=== PATIENT | female | born 1970 | race Caucasian/White ===

== ENCOUNTER 2017-03-17 19:41 | Emergency (ER) | payer BC ==
[~2017-03-17] VITALS: Ht 175.3 cm; Wt 94.0 kg
[2017-03-17 19:46] VITALS: TEMP 36.5; Ht 175.3 cm; Wt 94.0 kg
[2017-03-17 20:10] LABS: BASO % 0.3 %; BASO ABS # 0.03 K/uL (0-0.2); COMPLETE YES; EOS % 2.4 %; HEMATOCRIT 36.8 % (37-47); IG% 0.3 %; LYMPH % 27.1 %; LYMPH ABS # 2.43 K/uL (1.2-3.4); MEAN CELL VOLUME 93.4 fL (80-100); MEAN CORPUSCULAR HEMOGLOBIN 33.8 pg (25-34); MEAN CORPUSCULAR HGB CONC 36.1 g/dl (32-36); MEAN PLATELET VOLUME 10.6 fL (7.4-10.4); MONO % 4.8 %; NEUT % 65.1 %; PLATELET COUNT 258 K/uL (130-400); RED BLOOD COUNT 3.94 M/uL (4.2-5.4); WHITE BLOOD COUNT 8.98 K/uL (4.8-10.8)
[2017-03-17] MEDS ORDERED: HYDROmorphone INJ 0.5 MG/0.5 ML SYR IV STA ×2 (20:11→20:59)
[2017-03-17] MEDS ORDERED: ONDANSETRON INJ 2 MG/ML 2 ML VIAL IV STA (20:11)
[2017-03-17] MEDS ORDERED: SODIUM CHLORIDE 0.9% 1000ML 1,000 ML IV STA (20:11)
[2017-03-17 20:38] LABS: ALT/SGPT 35 U/L (12-78); AST/SGOT 12 U/L (15-37); BLOOD UREA NITROGEN 15 mg/dl (7-18); BUN/CREATININE RATIO 12.2 (10-20); CALCIUM 8.4 mg/dl (8.5-10.1); CARBON DIOXIDE 19 mmol/L (21-32); CHLORIDE 117 mmol/L (98-107); GLUCOSE 115 mg/dl (70-99); POTASSIUM 3.8 mmol/L (3.5-5.1); SODIUM 144 mmol/L (136-145)
[2017-03-17 20:40] LABS: ALKALINE PHOSPHATASE 86 U/L (45-117)
[2017-03-17 20:49] LABS: PREG INTERNAL NEGATIVE QC NEG CLEAR BACKGROUND; PREG INTERNAL POSITIVE QC POS CONTROL LINE
[2017-03-17 20:58] LABS: URINE APPEARANCE CLEAR (CLEAR); URINE BILIRUBIN NEG (NEG); URINE COLOR YELLOW; URINE NITRITE NEG (NEG); URINE PH 6.5 (4.5-7.5); UROBILINOGEN NEG (NEG); ZZUR CULT IF INDIC CLEAN CATCH NO
[2017-03-17 21:00] LABS: MANUAL MICROSCOPIC REQUIRED? NO; REVIEW REQ? NO
[2017-03-17] MEDS ORDERED: DIAZ10TA PO (21:22)
[2017-03-17] MEDS ORDERED: OLAN-111 PO (21:22)
[2017-03-17] MEDS ORDERED: TOPI100T20 PO (21:22)
--- NOTE | 2017-03-17 22:07 | DIAGNOSTIC IMAGING REPORT ---
ULTRASOUND RIGHT UPPER QUADRANT ABDOMEN CLINICAL HISTORY: Postprandial right upper quadrant abdominal pain. COMPARISON STUDY: No priors. TECHNIQUE: Real-time, grayscale, and color flow sonography of the right upper quadrant of the abdomen was performed. Images are reviewed in the transverse and longitudinal planes. FINDINGS: Liver: The liver is normal in size and heterogeneous in echotexture. There is no intrahepatic biliary ductal dilatation. The main portal vein is patent. Gallbladder: The gallbladder is normal in appearance. No gallstones are identified. There is no gallbladder wall thickening or pericholecystic fluid. A sonographic Cardenas's sign is reportedly absent. The common bile duct measures up to 0.5 cm in diameter. Pancreas: Visualized portions of the pancreatic head and body are normal in appearance. Right kidney: Survey images of the right kidney demonstrate normal size and echotexture. There is no hydronephrosis. Ascites: None. IMPRESSION: No acute sonographic abnormality is identified in the right upper quadrant. No gallstones are seen. Electronically signed by: Rocco Connors M.D. 03/17/2017 10:05 PM Dictated Date/Time: 03/17/2017 10:03 PM
[2017-03-17] MEDS ORDERED: OPTIRAY 320 IV PRN (22:45)
--- NOTE | 2017-03-17 23:07 | DIAGNOSTIC IMAGING REPORT ---
CT SCAN OF THE ABDOMEN AND PELVIS WITH IV CONTRAST CLINICAL HISTORY: Right upper quadrant abdominal pain. COMPARISON STUDY: Abdominal ultrasound dated 03/17/2017. TECHNIQUE: Following the IV administration of 93 cc of Optiray 320, CT scan of the abdomen and pelvis is performed from the lung bases to the proximal femora. Images are reviewed in the axial, sagittal, and coronal planes. IV contrast was administered without complication. Automated dose control exposure was utilized. CT DOSE: 905.30 mGy.cm FINDINGS: Lung bases: The heart is normal in size and without pericardial effusion. A peripherally calcified breast implant is partially visualized on the left. Linear atelectasis versus scarring is seen at the lung bases. No airspace consolidation is identified typical for pneumonia and no pleural effusion is seen a 5 mm left lower lobe pulmonary nodule is seen on image #35. Liver: The contrast-enhanced liver is normal in size, contour, and attenuation. There is no intrahepatic biliary ductal dilatation. The hepatic veins and portal veins are patent. A 7 mm hypodensity in the right lobe seen on image #140 may represent a tiny cyst but is too small for definitive characterization. Gallbladder: Unremarkable. Spleen: Normal in size and attenuation. Pancreas: Unremarkable. Adrenal glands: Unremarkable. Kidneys: The contrast enhanced kidneys are normal in size and without hydronephrosis. The kidneys enhance symmetrically. A retroaortic left renal vein is incidentally noted. A subcentimeter cortical hypodensity in the interpolar left kidney likely represents a cyst but is too small for definitive characterization. Abdominal vasculature: The abdominal aorta is normal in course and caliber noting mild to moderate and age advanced atherosclerotic calcification. Bowel: The small bowel and colon are normal in course and caliber. There is moderate colonic fecal retention. The appendix is well-visualized and normal. Peritoneum: There is no intraperitoneal free air or abdominal ascites. There is a small fat-containing umbilical hernia. Lymphadenopathy: None. Pelvic viscera: The bladder, uterus, and adnexa are normal as visualized. There are bilateral ovarian follicles. Trace free fluid is seen in the cul-de-sac. Skeletal structures: No lytic or blastic lesions are seen. IMPRESSION: 1. There are no acute infectious or inflammatory findings in the abdomen or pelvis. 2. There is trace and likely physiologic free fluid in the cul-de-sac. 3. A 5 mm left lower lobe pulmonary nodule is identified. This is pathologically indeterminant, and follow-up with a nonemergent chest CT scan is recommended for further interrogation. 4. Moderate constipation. 5. Additional findings as above. Electronically signed by: Rocco Connors M.D. 03/17/2017 11:05 PM Dictated Date/Time: 03/17/2017 10:59 PM
[2017-03-17] MEDS ORDERED: MAGNESIUM CITRATE 296 ML/BTL PO STA (23:54)
[2017-03-18] MEDS ORDERED: NORCO 5/325MG HOME PACK PO ONE
[2017-03-18] MEDS ORDERED: BENTYL HOME PACK 10 MG VIAL PO ONE
[2017-03-18 00:25] VITALS: BP 115/81; PULSE 79; O2SAT 95
--- NOTE | 2017-03-18 02:26 | EMERGENCY ROOM VISIT NOTE ---
History Report prepared by Jannet: Óscar Knowles Under the Supervision of: Dr. Jitendra Dia M.D. First contact with patient: 19:53 Chief Complaint: ABDOMINAL PAIN Stated Complaint: ABD PAIN History of Present Illness The patient is a 47 year old female who presents to the Emergency Room with complaints of intermittent upper abdominal pain beginning about a year ago. She states that her pain is generally present following eating. She states that her pain lasts for about 15 minutes at a time. The patient feels that her pain is likely due to her gallbladder. She states that her current episode of pain has lasted for over an hour and began after eating a tuna-fish sandwich and pop- tarts. She rates her current pain as an 8/10 in severity. She has a history of cholelithiasis, but no known history of cholecystitis. The patient states that she has had symptoms for several years, but with yearlong breaks between symptoms until this past year. She states that she vomited today with her current episode of pain. Pt denies LOC, headache, fevers, chills, diaphoresis, visual changes, neck pain, chest pain, breathing difficulties, nausea, back pain , melena, hematochezia, urinary symptoms, numbness, weakness, lymphadenopathy, rash, or other complaints. She has taken Toradol, Naproxen and Tylenol for her pain but has seen minimal relief. Source of History: patient Onset: a year ago Position: abdomen (upper) Symptom Intensity: 15 minute long episodes Timing: intermittent Associated Symptoms: + vomiting, No hematochezia, No melena Review of Systems See HPI for pertinent positives and negatives. A total of ten systems were reviewed and were otherwise negative. Past Medical & Surgical Medical Problems: (1) Bipolar disorder (2) Breast implant status (3) Cholelithiasis (4) Tonsillar abscess Surgical Problems: (1) S/P tubal ligation Family History No pertinent family history stated. Social History Smoking Status: Current Every Day Smoker Marital Status: Current/Historical Medications Scheduled Diazepam (Valium), 10 MG PO TID Topiramate (Topamax), 100 MG PO QAM Scheduled PRN Olanzapine (Zyprexa), 5-15 MG PO UNKNOWN PRN for PRN Allergies Coded Allergies: Carbamazepine (Unverified Allergy, Unknown, ANEMIA, 03/17/17) Penicillins (Unverified Allergy, Unknown, BRUISES, 03/17/17) Physical Exam Vital Signs Date Time Temp Pulse Resp B/P Pulse Ox O2 Delivery O2 Flow Rate FiO2 03/18/17 00:25 79 18 115/81 95 Room Air 03/17/17 22:15 70 16 117/70 100 03/17/17 19:46 36.5 91 16 130/88 100 Room Air Physical Exam GENERAL: Awake, alert, well-appearing, in no distress HENT: Normocephalic, atraumatic. Oropharynx unremarkable. EYES: Normal conjunctiva. Sclera non-icteric. NECK: Supple. No nuchal rigidity. FROM. No JVD. RESPIRATORY: Clear to auscultation. CARDIAC: Regular rate, normal rhythm. Extremities warm and well perfused. Pulses equal. ABDOMEN: Soft, non-distended. Right epigastric and RUQ tenderness to palpation. No rebound or guarding. No masses. RECTAL: Deferred. MUSCULOSKELETAL: Chest examination reveals no tenderness. The back is symmetrical on inspection without obvious abnormality. There is no CVA tenderness to palpation. No joint edema. LOWER EXTREMITIES: Calves are equal size bilaterally and non-tender. No edema. No discoloration. NEURO: Normal sensorium. No sensory or motor deficits noted. SKIN: No rash or jaundice noted. Medical Decision & Procedures ER Provider Diagnostic Interpretation: US/CT: Radiology results as stated below per my review and radiologist interpretation ULTRASOUND RIGHT UPPER QUADRANT ABDOMEN FINDINGS: Liver: The liver is normal in size and heterogeneous in echotexture. There is no intrahepatic biliary ductal dilatation. The main portal vein is patent. Gallbladder: The gallbladder is normal in appearance. No gallstones are identified. There is no gallbladder wall thickening or pericholecystic fluid. A sonographic Cardenas's sign is reportedly absent. The common bile duct measures up to 0.5 cm in diameter. Pancreas: Visualized portions of the pancreatic head and body are normal in appearance. Right kidney: Survey images of the right kidney demonstrate normal size and echotexture. There is no hydronephrosis. Ascites: None. IMPRESSION: No acute sonographic abnormality is identified in the right upper quadrant. No gallstones are seen. Electronically signed by: Rocco Connors M.D. CT SCAN OF THE ABDOMEN AND PELVIS WITH IV CONTRAST FINDINGS: Lung bases: The heart is normal in size and without pericardial effusion. A peripherally calcified breast implant is partially visualized on the left. Linear atelectasis versus scarring is seen at the lung bases. No airspace consolidation is identified typical for pneumonia and no pleural effusion is seen a 5 mm left lower lobe pulmonary nodule is seen on image #35. Liver: The contrast-enhanced liver is normal in size, contour, and attenuation. There is no intrahepatic biliary ductal dilatation. The hepatic veins and portal veins are patent. A 7 mm hypodensity in the right lobe seen on image #140 may represent a tiny cyst but is too small for definitive characterization. Gallbladder: Unremarkable. Spleen: Normal in size and attenuation. Pancreas: Unremarkable. Adrenal glands: Unremarkable. Kidneys: The contrast enhanced kidneys are normal in size and without hydronephrosis. The kidneys enhance symmetrically. A retroaortic left renal vein is incidentally noted. A subcentimeter cortical hypodensity in the interpolar left kidney likely represents a cyst but is too small for definitive characterization. Abdominal vasculature: The abdominal aorta is normal in course and caliber noting mild to moderate and age advanced atherosclerotic calcification. Bowel: The small bowel and colon are normal in course and caliber. There is moderate colonic fecal retention. The appendix is well-visualized and normal. Peritoneum: There is no intraperitoneal free air or abdominal ascites. There is a small fat-containing umbilical hernia. Lymphadenopathy: None. Pelvic viscera: The bladder, uterus, and adnexa are normal as visualized. There are bilateral ovarian follicles. Trace free fluid is seen in the cul-de-sac. Skeletal structures: No lytic or blastic lesions are seen. IMPRESSION: 1. There are no acute infectious or inflammatory findings in the abdomen or pelvis. 2. There is trace and likely physiologic free fluid in the cul-de-sac. 3. A 5 mm left lower lobe pulmonary nodule is identified. This is pathologically indeterminant, and follow-up with a nonemergent chest CT scan is recommended for further interrogation. 4. Moderate constipation. 5. Additional findings as above. Electronically signed by: Rocco Connors M.D. Laboratory Results 03/17/17 19:55 Red Blood Count 3.94, Mean Corpuscular Volume 93.4, Mean Corpuscular Hemoglobin 33.8, Mean Corpuscular Hemoglobin Concent 36.1, Mean Platelet Volume 10.6, Neutrophils (%) (Auto) 65.1, Lymphocytes (%) (Auto) 27.1, Monocytes (%) (Auto) 4.8, Eosinophils (%) (Auto) 2.4, Basophils (%) (Auto) 0.3, Neutrophils # (Auto) 5.84, Lymphocytes # (Auto) 2.43, Monocytes # (Auto) 0.43, Eosinophils # (Auto) 0.22, Basophils # (Auto) 0.03 03/17/17 19:55 Test 03/17/17 00:00 03/17/17 19:55 Urine Color YELLOW Urine Appearance CLEAR (CLEAR) Urine pH 6.5 (4.5-7.5) Urine Specific [place] 1.020 (1.000-1.030) Urine Protein NEG (NEG) Urine Glucose (UA) NEG (NEG) Urine Ketones NEG (NEG) Urine Occult Blood TRACE (NEG) Urine Nitrite NEG (NEG) Urine Bilirubin NEG (NEG) Urine Urobilinogen NEG (NEG) Urine Leukocyte Esterase NEG (NEG) Urine WBC (Auto) 0 /hpf (0-5) Urine RBC (Auto) 0-4 /hpf (0-4) Urine Hyaline Casts (Auto) 0 /lpf (0-5) Urine Epithelial Cells (Auto) 10-20 /lpf (0-5) Urine Bacteria (Auto) NEG (NEG) White Blood Count 8.98 K/uL (4.8-10.8) Red Blood Count 3.94 M/uL (4.2-5.4) Hemoglobin 13.3 g/dL (12.0-16.0) Hematocrit 36.8 % (37-47) Mean Corpuscular Volume 93.4 fL (80-100) Mean Corpuscular Hemoglobin 33.8 pg (25-34) Mean Corpuscular Hemoglobin Concent 36.1 g/dl (32-36) Platelet Count 258 K/uL (130-400) Mean Platelet Volume 10.6 fL (7.4-10.4) Neutrophils (%) (Auto) 65.1 % Lymphocytes (%) (Auto) 27.1 % Monocytes (%) (Auto) 4.8 % Eosinophils (%) (Auto) 2.4 % Basophils (%) (Auto) 0.3 % Neutrophils # (Auto) 5.84 K/uL (1.4-6.5) Lymphocytes # (Auto) 2.43 K/uL (1.2-3.4) Monocytes # (Auto) 0.43 K/uL (0.11-0.59) Eosinophils # (Auto) 0.22 K/uL (0-0.5) Basophils # (Auto) 0.03 K/uL (0-0.2) RDW Standard Deviation 42.1 fL (36.4-46.3) RDW Coefficient of Variation 12.3 % (11.5-14.5) Immature Granulocyte % (Auto) 0.3 % Immature Granulocyte # (Auto) 0.03 K/uL (0.00-0.02) Anion Gap 8.0 mmol/L (3-11) Est Creatinine Clear Calc Drug Dose 71.5 ml/min Estimated GFR () 62.8 Estimated GFR (Non- 54.2 BUN/Creatinine Ratio 12.2 (10-20) Calcium Level 8.4 mg/dl (8.5-10.1) Total Bilirubin 0.3 mg/dl (0.2-1) Direct Bilirubin < 0.1 mg/dl (0-0.2) Aspartate Amino Transf (AST/SGOT) 12 U/L (15-37) Alanine Aminotransferase (ALT/SGPT) 35 U/L (12-78) Alkaline Phosphatase 86 U/L (45-117) Total Protein 6.9 gm/dl (6.4-8.2) Albumin 3.6 gm/dl (3.4-5.0) Lipase 162 U/L (73-393) Human Chorionic Gonadotropin, Qual NEG (NEG) Laboratory results reviewed by me Medications Administered Medications (Trade) Dose Ordered Sig/Digna Route Start Time Stop Time Status Last Admin Dose Admin Hydromorphone HCl (Dilaudid Inj) 0.5 mg NOW STAT IV 03/17/17 20:11 03/17/17 20:13 DC 03/17/17 20:29 0.5 MG Ondansetron HCl 4 mg 4 mg NOW STAT IV 03/17/17 20:11 03/17/17 20:13 DC 03/17/17 20:29 4 MG Sodium Chloride (Nss 1000ml) 1,000 ml @ 999 mls/hr Q1H1M STAT IV 03/17/17 20:11 03/17/17 21:11 DC 03/17/17 20:29 999 MLS/HR Hydromorphone HCl (Dilaudid Inj) 0.5 mg NOW STAT IV 03/17/17 20:59 03/17/17 21:00 DC 03/17/17 21:08 0.5 MG Magnesium Citrate (Citrate Of Magnesia Soln) 296 ml NOW STAT PO 03/17/17 23:54 03/17/17 23:58 DC 03/18/17 00:25 296 ML Acetaminophen/ Hydrocodone Bitart ([place] 5/325mg Home Pack) 1 homepack UD ONCE PO 03/18/17 00:00 03/18/17 00:01 DC 03/18/17 00:25 1 HOMEPACK Dicyclomine HCl (Dicyclomine HCl 10MG Home Pack) 1 ea UD ONCE PO 03/18/17 00:00 03/18/17 00:01 DC 03/18/17 00:25 1 EA ECG Indication: abdominal pain Rate (beats per minute): 84 Rhythm: normal sinus Findings: no acute ischemic change, no ectopy ED Course 2006: The patient was evaluated in room C9. A complete history and physical exam was performed. 2010: Ordered Sodium Chloride 1000 ml @ 999 mls/hr IV, Zofran Inj 4 mg IV, Dilaudid Inj 0.5 mg IV. 2054: I reassessed the patient. She feels better but would like some more pain medication. She is going to [place]. 2058: Ordered Dilaudid Inj 0.5 mg IV. 2241: I updated the patient on his test results. We discussed the risks and benefits of a CT scan, and the patient verbalized agreement. 4: Ordered Magnesium Citrate 296 mL PO. 0000: Ordered Dicyclomine HCl 10 mg home pack PO, [place] 5/325 mg home pack PO. 0005: I reevaluated the patient. Discussed results and discharge instructions: she verbalized understanding and agreement. The patient is ready for discharge. Medical Decision Triage Nursing notes reviewed. The patient's presentation and history were concerning for abdominal pain. Etiologies such as biliary pathology, pancreatitis, appendicitis, diverticulitis , obstruction, inflammatory bowel disease, renal colic, PUD, mesenteric ischemia, aortic pathology, infections, genitourinary, UTI, perforated viscus, as well as others were entertained. The patient was evaluated. She was uncomfortable. She did not have any peritoneal findings. Blood work was obtained. She was given IV Dilaudid, Zofran, and normal saline hydration. She notes a history of gallstones. This pain was postprandial. Her CBC, chemistry panel, LFTs and lipase were unremarkable. The patient was reassessed. She was still having pain. She was given a second dose of IV Dilaudid. PDMP review was negative. The patient underwent ultrasound imaging. This was negative. Urinalysis was unremarkable as well. The patient underwent CT imaging which did not reveal any acute findings. Moderate constipation was noted. The patient has left-sided pulmonary nodule. I did discuss this with with the patient and I reviewed the images with the patient and her significant other as well. The patient does note a history of IBS. She does note constipation as well. The patient has moderate stool in the right side of the transverse colon and upper ascending colon. This could be a cause of her pain. The patient did request additional IV pain medication but I deferred as this would likely worsen her constipation issues. The patient states she would like to have prescription pain medicine for at home. The patient was only given a home pack as she had complaints of moderate pain. I did not want to worsen any constipation issues therefore the patient was given Bentyl and magnesium citrate. She will need close outpatient follow-up and she was in agreement. If she worsens in any way she will be back to the emergency department or seek care elsewhere if she is traveling. She has no pulmonary symptoms. There was no signs of trauma. There is no signs of zoster either. Conservative management was discussed and she was in agreement.I gave my usual and customary discussion regarding this issue. By the evaluation outlined above other emergent etiologies such as those listed in the differential, as well as others, were deemed relatively unlikely. The patient and significant other were informed about the findings as listed above. All questions were answered and they were pleased with the treatment. Return instructions were outlined and the patient was discharged in stable condition. The patient was referred to her PCP for follow-up for a recheck of the current condition. The chart was completed utilizing [employer] voice recognition software. Grammatical errors, random word insertions, pronoun errors, and incomplete sentences are an occasional consequence of this system due to software limitations, ambient noise, and hardware issues. Any formal questions or concerns about the content, text, or information contained within the body of this dictation should be directly addressed to the physician for clarification. [place] Drug Monitoring Program Search Results: patient reviewed within database, no issues identified Impression Primary Impression: RUQ abdominal pain Additional Impressions: Constipation Pulmonary nodule, left Scribe Attestation The scribe's documentation has been prepared under my direction and personally reviewed by me in its entirety. I confirm that the note above accurately reflects all work, treatment, procedures, and medical decision making performed by me. Departure Information Dispostion Home / Self-Care Forms Call Back Authorization, HOME CARE DOCUMENTATION FORM, IMPORTANT VISIT INFORMATION Patient Instructions My [facility] Additional Instructions ABDOMINAL PAIN INSTRUCTIONS: DO NOT drive, drink alcohol, operate machinery, or perform dangerous activities today. You were given medications in the ER that can affect your ability to safely function or operate a vehicle. Magnesium citrate: Drink half the bottle. If you do not have a good bowel movement within 8 hours drink the other half. Ibuprofen(Motrin, Advil) may be used for fever or pain. Use 600mg every six hours as needed. Take with food. Avoid using more than 2400mg in a 24 hour period. Do not use 2400mg per day for more than three consecutive days without physician direction. Prolonged inappropriate use can lead to stomach upset or ulcers. (AND/OR) Acetaminophen(Tylenol) may be used for fever or pain. Use 1000mg every six hours as needed. Avoid using more than 4000mg in a 24 hour period. Bentyl 10 mg one pill every 6 hours as needed for abdominal pain. Hydrocodone/acetaminophen 5/325mg: Take 1 pills every 6 hours as needed for breakthrough pain. Avoid additional Acetaminophen/Tylenol, alcohol, operating machinery or dangerous equipment, working on ladders or roofs, DRIVING, or situations where being under the influence may be dangerous. Rest and drink plenty of fluids as tolerated. Slow sips of water or sports drinks are recommended instead of large amounts all at once. Continue current medications. Once your stomach is settled start with a clear liquid diet (jello, soup broth, etc.) and then advance as tolerated. You should avoid full, heavy meals for about 24 hrs from the time your symptoms resolved. Return to the ER immediately for worsening or persistent abdominal pain, vomiting, fevers, chest pains, difficulty breathing, black or bloody stools, worsening of your condition, or as needed. Follow up with your primary physician as scheduled for a recheck of your current condition. An outpatient CT scan is necessary as there was a 5 mm nodule noted in the left lung base. This was not fully evaluated on abdominal imaging. Talk to your family doctor. Problem Qualifiers
== END 2017-03-18 00:25 | disposition home or self-care (01) ==
LOC: C.EDB 19:43 → C.EDC 03-18 00:25
DX: R10.11 Right upper quadrant pain (principal); K59.00 Constipation, unspecified; R91.1 Solitary pulmonary nodule; F31.9 Bipolar disorder, unspecified; Z98.82 Breast implant status; F17.200 Nicotine dependence, unspecified, uncomplicated